=== PATIENT | female | born 1935 | race Caucasian/White ===

== ENCOUNTER 2017-02-22 21:01 | Emergency (ER) | payer MEDICARE ==
[2017-02-22] MEDS ORDERED: IOPAMIDOL 300 (61%) 100 ML VIAL IV ONE (21:02)
[2017-02-22 23:21] LABS: PH,URINE 6.5 (5.0-8.0); URINE BILIRUBIN NEGATIVE (NEGATIVE); URINE BLOOD TRACE (NEGATIVE); URINE GLUCOSE (UA) NEGATIVE (NEGATIVE); URINE LEUKOCYTE ESTERASE 2+ (NEGATIVE); URINE NITRITE NEGATIVE (NEGATIVE); URINE PROTEIN TRACE (NEGATIVE); URINE UROBILINOGEN 1 mg/dL (0-1 mg/dl)
[2017-02-22 23:24] LABS: URINE APPEARANCE SL CLOUDY; URINE COLOR YELLOW
[2017-02-22 23:31] LABS: ABSOLUTE NEUTROPHIL COUNT 3.8 K/mm3 (1.8-7.7); BASO # 0.1 K/mm3 (0.0-0.2); BASO % 0.8 % (0.2-1.0); EOS # 0.1 (0.0-0.5); EOS % 1.6 % (0.9-2.9); HEMATOCRIT 33.7 % (37.0-47.0); HEMOGLOBIN 11.1 gm/l (12.0-16.0); IMM NEUT% 0.3 % (0-1); LYMPH # 1.7 (1.0-4.8); LYMPH % 26.4 % (15-45); MEAN CELL VOLUME 103.4 fl (81.0-99.0); MEAN CORPUSCULAR HGB CONC 32.9 g/dl (33.0-37.0); MONO # 0.7 (0.0-0.8); MONO % 11.2 % (4-12); NEUT % 59.7 % (43-75); PLATELET COUNT 162 K/mm3 (130-400); RED CELL DISTRIBUTION WIDTH 12.8 % (11.5-14.5)
[2017-02-22 23:32] LABS: URINE RBC 0 /hpf; URINE WBC 25-50 /hpf
[2017-02-22 23:33] LABS: URINE BACTERIA RARE
[2017-02-22 23:44] LABS: ALB/GLOB RATIO 0.8 (>1.0); ALBUMIN 3.4 gm/dL (3.5-5.7); CALCIUM 8.9 mg/dL (8.6-10.3); MAGNESIUM 1.9 mg/dL (1.9-2.7)
[2017-02-23] MEDS ORDERED: MORPHINE SULFATE 4 MG/ML SYRINGE ONE (01:48)
[2017-02-23] MEDS ORDERED: LACTATED RINGERS 1,000 ML ONE (02:42)
[2017-02-23] MEDS ORDERED: CIPROFLOXACIN 500 MG TABLET ONE (03:00)
[2017-02-23] MEDS ORDERED: HYDROCODONE/ACETAMINOPHEN 5/325MG TABLET ONE (03:01)
--- NOTE | 2017-02-23 07:46 | US ---
DUPLEX SCAN VEIN EXT ALONSO COMPARISON: Right lower extremity duplex ultrasound, 11/20/2011 HISTORY: Bilateral calf pain Technique: The veins of both lower extremities were interrogated with real-time grayscale ultrasound, color Doppler, and spectral Doppler. Vessel compressibility and flow augmentation were assessed. FINDINGS: Right lower extremity Deep venous thrombosis: None Common femoral vein: Normal Saphenous vein confluence: Normal Proximal femoral vein: Normal Mid and distal femoral vein: Normal Popliteal vein: Normal. Peroneal veins: Normal. Posterior tibial veins: Normal Soft tissues: Normal. FINDINGS: Left lower extremity Deep venous thrombosis: None Common femoral vein: Normal Saphenous vein confluence: Normal Proximal femoral vein: Normal Mid and distal femoral vein: Normal Popliteal vein: Normal Peroneal veins: Normal Posterior tibial veins: Normal Soft tissues: Normal IMPRESSION: There is no evidence of deep venous thrombosis of either lower extremity. Preliminary report by [facility] radiologist Gordon Barrera M.D. 02/23/2017 at 03:23
--- NOTE | 2017-02-23 07:53 | CT ---
ABD/PELVIS W/ CON COMPARISON: CT abdomen pelvis with contrast, 11/02/2015 HISTORY: Diffuse abdominal pain for one week. Technique: No oral contrast. Intravenous injection 100 mL Isovue 300. Using a [employer] Aquilion [address] scanner, images were obtained from the diaphragm to the floor the pelvis. An automated dose reduction technique was used to minimize patient radiation dose. Dose information: CTDIvol (mGy): 17.50 DLP(mGycm): 807.40 FINDINGS: Lung bases: Normal. Inferior mediastinum and heart: Large sliding hiatal hernia. Liver: Normal. Gallbladder:Normal. Bile ducts: Normal. Pancreas: Marked atrophy. Spleen: Calcified granulomas. Adrenal glands: Normal. Kidneys: Bilateral simple cysts. Normal enhancement. No hydronephrosis or solid mass. Ureters: Normal Urinary bladder: Normal. Uterus and adnexa: The uterus and urinary bladder are supported by a pessary within the vagina. Blood vessels: Atherosclerotic calcific plaquing of the aorta and its branches. No aneurysm. Lymph nodes: Normal Stomach: Large sliding hiatal hernia with at least half of the stomach in the mediastinum. Duodenum: Normal Small intestine: No evidence of obstruction. No inflammatory changes. Normal terminal ileum. Appendix: Normal Colon: No evidence of diverticulitis or colitis. Abdominal wall and supporting musculature: Normal Bones: No acute finding. Osteoporosis with multiple compression fractures of the lumbar and lower thoracic vertebrae. IMPRESSION: 1. No significant change in comparison to 11/02/2015 CT of the abdomen and pelvis. 2. Large sliding hiatal hernia. 3. Incidental findings include calcified granulomas in the spleen, atherosclerosis of the aorta and its branches, bilateral renal cysts, pessary, and severe osteoporosis with multiple vertebral body old compression fractures. Preliminary report by [facility] radiologist Gordon Barrera M.D. 02/15/2017 at 02:09
== END 2017-02-23 04:26 | disposition home or self-care (01) ==
LOC: ED 21:01
DX: N39.0 Urinary tract infection, site not specified (principal); M79.605 Pain in left leg; M79.604 Pain in right leg; R10.84 Generalized abdominal pain

== ENCOUNTER 2017-03-17 14:19 | Emergency (ER) | payer MEDICARE ==
[2017-03-17 15:51] LABS: ABSOLUTE NEUTROPHIL COUNT 3.9 K/mm3 (1.8-7.7); BASO # 0.1 K/mm3 (0.0-0.2); BASO % 0.8 % (0.2-1.0); EOS # 0.2 (0.0-0.5); EOS % 2.5 % (0.9-2.9); HEMOGLOBIN 10.8 gm/l (12.0-16.0); IMM NEUT% 0.3 % (0-1); LYMPH # 1.7 (1.0-4.8); LYMPH % 26.3 % (15-45); MEAN CELL VOLUME 106.8 fl (81.0-99.0); MEAN CORPUSCULAR HGB CONC 32.7 g/dl (33.0-37.0); MEAN PLATELET VOLUME 9.8 fl (7.4-10.4); MONO # 0.7 (0.0-0.8); MONO % 10.8 % (4-12); NEUT % 59.3 % (43-75); PLATELET COUNT 176 K/mm3 (130-400); RED CELL DISTRIBUTION WIDTH 13.3 % (11.5-14.5)
[2017-03-17 16:06] LABS: ALB/GLOB RATIO 0.8 (>1.0); ALBUMIN 3.4 gm/dL (3.5-5.7); CALCIUM 8.7 mg/dL (8.6-10.3)
[2017-03-17 16:12] LABS: URINE APPEARANCE CLEAR; URINE BILIRUBIN NEGATIVE (NEGATIVE); URINE BLOOD TRACE (NEGATIVE); URINE COLOR YELLOW; URINE GLUCOSE (UA) NEGATIVE (NEGATIVE); URINE LEUKOCYTE ESTERASE 2+ (NEGATIVE); URINE NITRITE NEGATIVE (NEGATIVE); URINE PROTEIN TRACE (NEGATIVE); URINE UROBILINOGEN 1 mg/dL (0-1 mg/dl)
[2017-03-17 16:21] LABS: URINE BACTERIA FEW; URINE EPITHELIAL CELLS 0-2 /hpf; URINE RBC 0 /hpf; URINE WBC 40-50 /hpf
[2017-03-17] MEDS ORDERED: MORPHINE SULFATE 15 MG TAB.PRT.SR PO ONE ×2 (17:15→17:23)
--- NOTE | 2017-03-17 18:39 | US ---
ABDOMINAL-LIMITED, RENAL LTD/AORTA/BLADDER: 03/17/2017 4:36 PM CLINICAL HISTORY: Right upper quadrant pain. STUDY: Limited right upper quadrant ultrasound COMPARISON: CT abdomen pelvis with contrast 02/23/2017 FINDINGS: Study is limited secondary to patient's body habitus and inability to breath-hold. Gallbladder: Wall thickness: Normal Cholelithiasis: Possible cholelithiasis. Pericholecystic Fluid: none Sonographic Alvarenga's Sign: negative Bile ducts: Common bile duct measures 7 mm. Limited visualized Liver and RUQ structures: normal IMPRESSION: Limited assessment with possible cholelithiasis. Otherwise no findings of acute cholecystitis. ABDOMINAL-LIMITED, RENAL LTD/AORTA/BLADDER HISTORY: Back pain. Patient is incontinent. Pessary device. COMPARISONS: CT abdomen pelvis with contrast 02/23/2017 FINDINGS: Multiple grayscale and color flow images during bladder ultrasound are obtained. Bilateral urinary jets are visualized. Bladder is unremarkable without evidence of calculus. The patient's pessary is noted. IMPRESSION: No evidence of bladder calculi. Bilateral urinary jets. Findings were called to Dr. Silva at approximately 1834 hours on 03/17/2017.
[2017-03-17] MEDS ORDERED: HYDROCODONE/ACETAMINOPHEN 5/325MG TABLET ONE (19:13)
== END 2017-03-17 20:43 | disposition home or self-care (01) ==
LOC: ED 14:19
DX: N39.0 Urinary tract infection, site not specified (principal); G89.29 Other chronic pain; I10 Essential (primary) hypertension; G30.9 Alzheimer's disease, unspecified; F02.80 Dementia in other diseases classified elsewhere, unspecified severity, without behavioral disturbance, psychotic disturbance, mood disturbance, and anxiety